=== PATIENT | female | born 1965 | race Caucasian/White ===

== ENCOUNTER 2016-11-05 23:21 | Emergency (ER) | payer BC ==
[2016-11-06] VITALS: TEMP 98.6; BMI 45.4
--- NOTE | 2016-11-06 00:51 | EDPRACDOC ---
- General Information Chief Complaint: Thigh Pain Stated Complaint: LT LEG DISCOMFORT Information Source: Patient Allergies/Adverse Reactions: Allergies Allergy/AdvReac Type Severity Reaction Status Date / Time No Known Allergies Allergy Verified 11/06/16 00:00 - History of Present Illness Onset: district [employer] HPI: C/o left leg swelling and pain x 1 week. hx of 3 DVT's and PE 2011. Not on blood thinner anymore, stopped March 2016. pt takes 1 asa on sundays. Pt denies, cp, sob, immobility, recent surgery, trauma, estrogen supplementation. Med hx = DM. Surgeries= leticia, 2 c sections. Mechanism: Reports: None Circumstances: Reports: Spontaneous History of: Reports: None Severity: Reports: Mild Able to Bear Weight: Fully Associated Signs & Symptoms: Reports: Swelling Pain In: Reports: Leg, Thigh ED Past Medical History - History Reviewed Yes Nurses notes reviewed and agree except as marked - Patient Medical History Psychological History: Reports: Anxiety. Denies: Depression Systemic History: Denies: Cancer Surgical History: Reports: Cholecystectomy. Denies: Hysterectomy - Social Medical History Smoking Status: Never smoker EDM Review of Systems - Review of Systems ROS Negative Except as Marked: Yes All systems reviewed and were negative except as marked Musculoskeletal: Leg (left leg swelling and pain) Endocrine: Diabetes - Physical Exam Constitutional: No apparent distress, Alert Oriented to: Time, Person, Place Last recorded Vital Signs: Last Vital Signs Temp 98.6 F 11/05/16 23:49 Pulse 96 11/05/16 23:49 Resp 20 11/05/16 23:49 BP 145/86 11/05/16 23:49 Pulse Ox 95 11/05/16 23:49 Oxygen Pulse Oxygen Saturation 95 O2 Device Room Air Oxygen Flow Rate Fraction of Inspired Oxygen ( FIO2) - HEENT Head: Normal Eye Exam: negative: Conjunctival Injection, Scleral Icterus Oropharynx: negative: Drooling TMJ: Normal Nose: No Symptoms Reported Neck: Normal - Respiratory/Cardiovascular Respiratory: Normal - CTA Cardiovascular: Normal - GI Auscultation: Normal Tenderness: Non tender - Musculoskeletal Back: Normal Extremities: Calf Tenderness (left), Femoral Pulse, Pedal Pulse, Radial Pulse Musculoskeletal Comment: No "cord" noted, no erythema noted,. - Integumentary Skin: Normal - Neurologic Mood Description: Normal Thought: Coherent Perception: Normal - Results 11/06/16 01:10 - Additional Information No US available at this time. Lovenox bolus for pt and f/up with pcp in the am for US of left leg. Decision Time to Discharge: 02:38 - Departure Disposition: Home Condition: Stable Final Diagnosis: Left leg swelling Education/Counseling Given To: Patient Education/Counseling Given Regarding: Diagnosis, Treatment, Prognosis, Follow Up Referrals: David Gonzalez MD [Primary Care Provider] - One Week Additional Instructions: Follow up with primary care this am for ultra sound of left leg. Return to ED for any new or worsening symptoms.
[2016-11-06] MEDS ORDERED: Enoxaparin 1 mg per kg per dose SQ ONE ×2 (00:59→01:58)
[2016-11-06 01:33] LABS: BLOOD UREA NITROGEN 13 MG/DL (7-17); CALC CORRECTED 9.2 MG/DL (8.4-10.2); CALCIUM 8.9 MG/DL (8.4-10.2); CALCULATED OSMOLALITY 265 MOs/Kg (270-290); CHLORIDE 103 mEq/L (98-107); GLUCOSE 108 mg/dL (70-99); SODIUM LEVEL 137 mEq/L (137-146); TOTAL PROTEIN 7.6 G/DL (6.3-8.2)
[2016-11-06 02:59] VITALS: BP 133/71; PULSE 90
[2016-11-06] MEDS ORDERED: ENOXAPARIN SODIUM 100 MG, ENOXAPARIN SODIUM 30 MG SQ ONE ×2 (03:00)
== END 2016-11-06 02:50 | disposition home or self-care (01) ==
LOC: ED 23:21
DX: M79.89 Other specified soft tissue disorders (principal)
CPT/HCPCS: 36415; 80053; 96372; 99283; J1650